=== PATIENT | male | born 1960 | race Caucasian/White ===

== ENCOUNTER 2023-09-28 12:35 | Outpatient (CLI) | payer SELFPAY ==
--- NOTE | 2023-09-28 12:42 | CT_ITS ---
WS: [id number] CT CALCIUM SCORE REASON FOR VISIT: PERIPHERAL VASCULAR DZ; Coronary artery disease risk assessment COMPARISON: None TECHNIQUE: Noncontrast coronary CT in combination with quantitative analysis performed on a separate workstation were used to determine CACS (Agatston score) TOTAL EXAM DOSE: 42.00 mGy.cm ECG GATING: Prospective SCAN RANGE: Pulmonary artery bifurcation to Inferior aspect of heart COMPLICATIONS: None FINDINGS: Technical Quality/Examination Quality: Good Limitation: None OVERALL SCORES Total calcium score: 19 Total volume score: 19 mm3 Percentile: 25% ARTERY SCORES Left main coronary artery: 0 Left anterior descending artery: 17 Left circumflex artery: 0 Right coronary artery: 2 OTHER FINDINGS: Mediastinum: Normal. Thoracic aorta: Mild pectus excavatum. Lungs: Incompletely visualized is a focal opacification towards the lingula and LEFT upper lobe. Upper Abdomen: Normal. IMPRESSION: 1. Total calcium score of 19. 2. Patient at the 25th percentile of similar age and gender. 3. Mildly increased risk for coronary artery event. GRADING OF CORONARY ARTERY DISEASE (BASED ON TOTAL CALCIUM SCORE) NO EVIDENCE OF CAD: 0 calcium score MINIMAL: 1-10 MILD: 11-100 MODERATE: 101-400 SEVERE:>400
== END 2023-09-28 12:36 | disposition home or self-care (01) ==
LOC: RAD 12:37
PROVIDERS: Visit Provider Family Medicine
DX: Z13.6 Encounter for screening for cardiovascular disorders (principal)
CPT/HCPCS: 75571